=== PATIENT | female | born 1970 | race Two or more races ===

== ENCOUNTER 2019-02-16 07:30 | Outpatient (CLI) | payer OTHER | END 2019-02-16 07:40 | disposition home or self-care (01) | LOC: MAMO-SONO 07:30 | DX: Z12.31 Encounter for screening mammogram for malignant neoplasm of breast (principal); Z87.898 Personal history of other specified conditions ==

== ENCOUNTER 2020-11-30 09:20 | Outpatient (CLI) | payer OTHER | END 2020-11-30 09:38 | disposition home or self-care (01) | LOC: MAMO-SONO 09:20 | PROVIDERS: ATTEND General Practice | DX: N60.11 Diffuse cystic mastopathy of right breast (principal); N60.12 Diffuse cystic mastopathy of left breast; Z12.31 Encounter for screening mammogram for malignant neoplasm of breast ==

== ENCOUNTER 2022-03-27 09:23 | Outpatient (CLI) | payer OTHER | END 2022-03-27 09:36 | disposition home or self-care (01) | LOC: MAMO-SONO 09:23 | PROVIDERS: ATTEND General Practice | DX: Z12.39 Encounter for other screening for malignant neoplasm of breast (principal); N63.0 Unspecified lump in unspecified breast ==

== ENCOUNTER 2023-05-08 08:47 | Outpatient (CLI) | payer OTHER | END 2023-05-08 09:10 | disposition home or self-care (01) | LOC: MAMO-SONO 08:47 | PROVIDERS: ATTEND General Practice | DX: Z12.39 Encounter for other screening for malignant neoplasm of breast (principal); N63.0 Unspecified lump in unspecified breast; Z12.31 Encounter for screening mammogram for malignant neoplasm of breast ==

== ENCOUNTER 2024-11-11 08:05 | Outpatient (CLI) | payer OTHER | END 2024-11-11 08:16 | disposition home or self-care (01) | LOC: MAMO-SONO 08:05 | DX: N64.4 Mastodynia (principal); Z12.31 Encounter for screening mammogram for malignant neoplasm of breast ==